=== PATIENT | female | born 1975 | race Caucasian/White ===

== ENCOUNTER 2017-08-04 11:35 | Observation (INO) | payer MEDICAID ==
[~2017-08-04] VITALS: Ht 162.6 cm; Wt 76.1 kg
--- NOTE | 2017-08-04 13:48 | ERD ---
ER Documentation Chief Complaint Chief Complaint SENT FOR EVAL FOR PELVIC PAIN, 6 WKS PG, VB HPI This is a 41-year-old female who presents the emergency department today after being sent here by her primary care doctor for further evaluation of some lower pelvic pain. Patient states she has not taken a medication for the pain. States that she had a small amount of blood yesterday but denies any currently. Denies any fevers or chills, vomiting, dysuria ROS All systems reviewed and are negative except as per history of present illness. Allergies Allergies: Coded Allergies: No Known Allergy (Verified Allergy, Unknown, 11/24/07) Physical Exam Vitals Vital Signs Date Time Temp Pulse Resp B/P Pulse Ox O2 Delivery O2 Flow Rate FiO2 08/04/17 11:37 99.3 67 18 170/84 99 Physical Exam Const: NAD Head: Atraumatic Eyes: Normal Conjunctiva ENT: Normal External Ears, Nose and Mouth. Neck: Full range of motion..~ No meningismus. Resp: Clear to auscultation bilaterally Cardio: Regular rate and rhythm, no murmurs Abd: Soft, mild pelvic tenderness non distended. Normal bowel sounds. No tenderness at McBurney's Skin: No petechiae or rashes Back: No midline or flank tenderness Ext: No cyanosis, or edema Neur: Awake and alert Psych: Normal Mood and Affect Result Diagram: 08/04/17 1349 Results 24 hrs Laboratory Tests Test 08/04/17 13:49 08/04/17 13:55 White Blood Count 7.210^3/ul Red Blood Count 4.9410^6/ul Hemoglobin 14.7g/dl Hematocrit 42.9% Mean Corpuscular Volume 86.8fl Mean Corpuscular Hemoglobin 29.8pg Mean Corpuscular Hemoglobin Concent 34.3g/dl Red Cell Distribution Width 13.4% Platelet Count 00336^3/UL Mean Platelet Volume 9.2fl Neutrophils % 56.5% Lymphocytes % 35.3% Monocytes % 6.1% Eosinophils % 1.1% Basophils % 0.6% Nucleated Red Blood Cells % 0.0/100WBC Neutrophils # 4.010^3/ul Lymphocytes # 2.510^3/ul Monocytes # 0.410^3/ul Eosinophils # 0.110^3/ul Basophils # 0.010^3/ul Nucleated Red Blood Cells # 0.010^3/ul Beta HCG, Quantitative 1738.8mIU/ml Urine Color STRAW Urine Clarity CLEAR Urine pH 6.0 Urine Specific [place] 1.012 Urine Ketones NEGATIVEmg/dL Urine Nitrite NEGATIVEmg/dL Urine Bilirubin NEGATIVEmg/dL Urine Urobilinogen NEGATIVEmg/dL Urine Leukocyte Esterase NEGATIVELeu/ul Urine Microscopic RBC 7/HPF Urine Microscopic WBC 1/HPF Urine Bacteria FEW/HPF Urine Mucus FEW/HPF Urine Hemoglobin 2+mg/dL Urine Glucose NEGATIVEmg/dL Urine Total Protein NEGATIVEmg/dl DIAGNOSTIC IMAGING REPORT Patient: CARA BALDERAS : 1975 Age: 41 Sex: F MR #: [id number] DOS: 08/04/17 1335 Ordering MD: KAYA BUSBY PA-C Location: FT Room/Bed: PROCEDURE: US Pelvis. CLINICAL INDICATION: vaginal bleeding TECHNIQUE: Multiple sonographic images of the pelvis were obtained utilizing a transabdominal and endovaginal technique. The images were reviewed on a PACS workstation. COMPARISON: None. FINDINGS: The uterus is normal in size and demonstrates a normal appearance of the myometrium. The endometrial stripe is homogeneous in appearance and has the thickness of 12 mm. No intrauterine gestation is noted. Normal Doppler flow is identified in both ovaries. The right ovary measures 2.4 x 1.4 x 1.6 cm. There is a hemorrhagic cyst in the right ovary measuring 1.5 cm. The left ovary measures 1.8 x 1.2 x 1.2 cm. There is a small amount of free fluid in the pelvis. RPTAT: AA IMPRESSION: No intrauterine gestation visualized. Small hemorrhagic corpus luteum cyst in the right ovary. Small amount of free fluid in the pelvis. Differential diagnosis includes early , missed or ectopic . Follow-up ultrasound and HCG levels is recommended. .Raghavendra King MD, MD Date Time Electronically viewed and signed by .Raghavendra King MD, MD on 08/04/2017 14: 12 .S/ CC: KAYA BUSBY PA-C Procedures/MDM This is a 41-year-old female who presents the emergency department today after being referred by her cocktail server Dr. Ortiz further evaluation and management for some lower pelvic pain and one bout of vaginal bleeding. Patient states she is approximately 6 weeks . States she has not yet had an ultrasound. Given patient's complaints I did obtain a complete OB workup. Laboratory work shows no elevated white blood cell count. She is not anemic. Platelets are within normal limits. UA is negative for infection. There are 7 microscopic red blood cells. Beta quant hCG 1738.8 Rh status O Positive Ultrasound is no intrauterine gestation visualized. There is normal Doppler flow to both ovaries. There is a hemorrhagic cyst in the right ovary measuring 1.5 cm. There is a small amount of free fluid in the pelvis. Patient symptoms at this time is consistent pelvic pain in early . Other differentials to consider early normal versus early failed versus placenta previa versus subchorionic hemorrhage. She does not have an intrauterine and her quant is above [address] a call to the patient's TRAIN INSPECTOR who was here at the hospital Dr. Ortiz. He recommended that the patient be admitted for observation and to rule out ectopic . I have explained this to the patient and she has agreed to stay in the hospital. Patient is afebrile and otherwise well-appearing. I have low suspicion for tubo ovarian abscess, ovarian torsion. She declined Tylenol here in the emergency department. I discussed the patient with Dr. Park. Dr. Hodges like the patient admitted to [facility]. Patient's blood pressure was elevated at 170/ 84 intake. Patient indicated that she takes amlodipine [address] Park was also notified of this. Any further orders placed will be completed by Dr. Park, or Dr. Hodges Departure Diagnosis: Primary Impression: Pelvic pain during Condition: Fair KAYA BUSBY PA-C Aug 04, 2017 13:48
[2017-08-04 14:10] LABS: BASOPHILS % 0.6 % (0.0-2.0); EOSINOPHILS # 0.1 10^3/ul (0.0-0.5); EOSINOPHILS % 1.1 % (0.0-7.0); HEMATOCRIT 42.9 % (37.0-47.0); HEMOGLOBIN 14.7 g/dl (12.0-16.0); LYMPHOCYTES # 2.5 10^3/ul (0.8-2.9); LYMPHOCYTES % 35.3 % (15.0-51.0); MEAN CORPUSCULAR HEMOGLOBIN 29.8 pg (29.0-33.0); MEAN CORPUSCULAR HGB CONC 34.3 g/dl (32.0-37.0); MEAN CORPUSCULAR VOLUME 86.8 fl (82.0-101.0); MEAN PLATELET VOLUME 9.2 fl (7.4-10.4); MONOCYTE # 0.4 10^3/ul (0.3-0.9); MONOCYTES % 6.1 % (0.0-11.0); NEUTROPHILS % 56.5 % (39.0-77.0); PLATELET COUNT 366 10^3/UL (140-415); RED BLOOD COUNT 4.94 10^6/ul (4.20-5.40); RED CELL DISTRIBUTION WIDTH 13.4 % (11.5-14.5); WHITE BLOOD COUNT 7.2 10^3/ul (4.8-10.8)
--- NOTE | 2017-08-04 14:12 | RADRPT ---
PROCEDURE: US Pelvis. CLINICAL INDICATION: vaginal bleeding TECHNIQUE: Multiple sonographic images of the pelvis were obtained utilizing a transabdominal and endovaginal technique. The images were reviewed on a PACS workstation. COMPARISON: None. FINDINGS: The uterus is normal in size and demonstrates a normal appearance of the myometrium. The endometria l stripe is homogeneous in appearance and has the thickness of 12 mm. No intrauterine gestation is noted. Normal Doppler flow is identified in both ovaries. The right ovary measures 2.4 x 1.4 x 1.6 cm. There is a hemorrhagic cyst in the right ovary measurin g 1.5 cm. The left ovary measures 1.8 x 1.2 x 1.2 cm. There is a small amount of free fluid in the pelvis. RPTAT: AA IMPRESSION: No intrauterine gestation visualized. Small hemorrhagic corpus luteum cyst in the right ovary. Small amount of free fluid in the pelvis. Differential diagnosis includes early , missed or ectopic . Follow-up ultrasound and HCG levels is recommended. .Raghavendra King MD, Date Time Electronically viewed and signed by .Raghavendra King MD, on 08/04/2017 14:12 .S/
[2017-08-04 14:14] LABS: ADD UMIC YES; UR ASCORBIC ACID NEGATIVE (NEGATIVE); UR BACTERIA FEW /HPF (NONE SEEN); UR BILIRUBIN (Dip) NEGATIVE (NEGATIVE); UR BLOOD (Dip) 2+ mg/dL (NEGATIVE); UR CLARITY CLEAR (CLEAR); UR COLOR STRAW (YELLOW); UR GLUCOSE (Dip) NEGATIVE (NEGATIVE); UR KETONES (Dip) NEGATIVE (NEGATIVE); UR LEUKOCYTE ESTERASE (Dip) NEGATIVE Leu/ul (NEGATIVE); UR MUCUS FEW /HPF (NONE SEEN); UR NITRITE (Dip) NEGATIVE (NEGATIVE); UR RBC 7 /HPF (0-5); UR SPECIFIC GRAVITY (Dip) 1.012 (1.003-1.030); UR TOTAL PROTEIN (Dip) NEGATIVE (NEGATIVE); UR UROBILINOGEN (Dip) NEGATIVE (NEGATIVE)
[2017-08-04 19:45] VITALS: PULSE 70; TEMP 98.3
[2017-08-04 21:28] VITALS: BP 123/61; RESP 16
[2017-08-04 22:38] VITALS: Ht 162.6 cm; Wt 76.1 kg
[2017-08-04] MEDS ORDERED: ACETAMINOPHEN 325 MG TAB PO PRN (23:00)
[2017-08-05 01:39] VITALS: BP 110/68; RESP 16
[2017-08-05 05:15] LABS: BASOPHILS % 0.5 % (0.0-2.0); EOSINOPHILS # 0.1 10^3/ul (0.0-0.5); EOSINOPHILS % 1.7 % (0.0-7.0); HEMATOCRIT 38.4 % (37.0-47.0); HEMOGLOBIN 13.1 g/dl (12.0-16.0); LYMPHOCYTES # 2.9 10^3/ul (0.8-2.9); LYMPHOCYTES % 44.9 % (15.0-51.0); MEAN CORPUSCULAR HEMOGLOBIN 29.6 pg (29.0-33.0); MEAN CORPUSCULAR HGB CONC 34.1 g/dl (32.0-37.0); MEAN CORPUSCULAR VOLUME 86.9 fl (82.0-101.0); MEAN PLATELET VOLUME 9.3 fl (7.4-10.4); MONOCYTE # 0.5 10^3/ul (0.3-0.9); MONOCYTES % 7.6 % (0.0-11.0); NEUTROPHIL # 2.9 10^3/ul (1.6-7.5); PLATELET COUNT 314 10^3/UL (140-415); RED BLOOD COUNT 4.42 10^6/ul (4.20-5.40); RED CELL DISTRIBUTION WIDTH 13.5 % (11.5-14.5); WHITE BLOOD COUNT 6.4 10^3/ul (4.8-10.8)
[2017-08-05 05:48] LABS: CALCIUM 8.8 mg/dl (8.4-10.2); CREATININE 0.63 mg/dl (0.44-1.00); POTASSIUM 3.6 mmol/L (3.5-5.1)
[2017-08-05 08:23] VITALS: BP 125/70; RESP 18
[2017-08-05] MEDS: AMLODIPINE 5 MG TAB PO SCH (09:54)
--- NOTE | 2017-08-05 13:06 | QN ---
Documentation Comment c/o RLQ pain. No other complaint Afebrile VSS Abdomen soft no rebound tenderness hCG slightly increased Will get follow up hCG, CBC and OB ultrasound. PAO HYATT MD Aug 05, 2017 13:06
--- NOTE | 2017-08-05 13:16 | HP ---
DATE OF ADMISSION: 08/04/2017 HISTORY OF PRESENT ILLNESS: A 41-year-old female 3, para 2, last menstrual period 7. The patient presented to the emergency department with complaints of pelvic pain and vaginal ble eding. PAST MEDICAL HISTORY: Hypertension. PAST SURGICAL HISTORY: Unremarkable. ALLERGIES: NO KNOWN ALLERGIES. FAMILY HISTORY: Noncontributory. PHYSICAL EXAMINATION: VITAL SIGNS: Patient is afebrile. Vital signs stable. HEAD, NECK AND CHEST: Within normal limits. ABDOMEN: Soft, nondistended. There is mild tenderness in the right lower quadrant. There is no re bound tenderness. PELVIC: Cervix is closed. EXTREMITIES: Within normal limits. NEUROLOGIC: Within normal limits. Workup in the emergency department included a serum hCG of 1700 and obstetric ultrasound which revea led no evidence of intrauterine , hemorrhagic cyst in the ovary, a small amount of free flu id, early intrauterine , missed or ectopic . IMPRESSION: Rule out ectopic . PLAN: Admit, serial hCG and CBC. Follow up OB ultrasound. Dictated By: PAO ANDERSON/WEN Conf#: [id number] DID#: [id number]
[2017-08-05 15:38] VITALS: BP 105/57; RESP 18
[2017-08-05 20:10] VITALS: BP 123/68; RESP 18
[2017-08-06 02:08] VITALS: BP 118/70; RESP 18
[2017-08-06 05:24] LABS: BASOPHILS % 0.3 % (0.0-2.0); EOSINOPHILS # 0.2 10^3/ul (0.0-0.5); EOSINOPHILS % 2.2 % (0.0-7.0); HEMATOCRIT 39.6 % (37.0-47.0); HEMOGLOBIN 13.4 g/dl (12.0-16.0); LYMPHOCYTES # 2.8 10^3/ul (0.8-2.9); LYMPHOCYTES % 40.7 % (15.0-51.0); MEAN CORPUSCULAR HEMOGLOBIN 29.6 pg (29.0-33.0); MEAN CORPUSCULAR HGB CONC 33.8 g/dl (32.0-37.0); MEAN CORPUSCULAR VOLUME 87.4 fl (82.0-101.0); MEAN PLATELET VOLUME 9.3 fl (7.4-10.4); MONOCYTE # 0.5 10^3/ul (0.3-0.9); MONOCYTES % 7.8 % (0.0-11.0); NEUTROPHIL # 3.4 10^3/ul (1.6-7.5); NEUTROPHILS % 48.7 % (39.0-77.0); PLATELET COUNT 302 10^3/UL (140-415); RED BLOOD COUNT 4.53 10^6/ul (4.20-5.40); RED CELL DISTRIBUTION WIDTH 13.2 % (11.5-14.5)
[2017-08-06 07:33] VITALS: BP 136/66; RESP 19
[2017-08-06] MEDS: AMLODIPINE 5 MG TAB PO SCH (08:36)
--- NOTE | 2017-08-06 09:33 | RADRPT ---
PROCEDURE: US Pelvis. CLINICAL INDICATION: Pelvic pain TECHNIQUE: Transabdominal and transvaginal pelvic ultrasound are performed. COMPARISON: None. FINDINGS: The uterus is normal in echogenicity and retroverted in orientation. The uterus measures 7.5 x 4.9 x 5.4 cm. There is a 1 cm myometrial fibroid.. A thickened endometrium is seen. Within the endomet rial canal, there is a very small cystic structure measuring 2.6 mm. This may represent a gestationa l sac of approximately 4 weeks 6 days. No pole with yolk sac is seen. No obvious subchorionic hemorrhage is identified.. The cervix is normal in appearance. Both ovaries are identified, and normal in size, shape, and appearance. Corpus luteal cyst is noted in the right ovary. There are no complex or solid adnexal masses.. Normal Doppler flow is noted of both ovaries. The right ovary measures 2.2 x 1.4 x 1.4 cm, and the left ovary measures 2.4 x 1.6 x 1.4 cm There is no free fluid in the posterior cul-de-sac and adjacent to the right adnexa IMPRESSION: 1. Small cystic structure identified in the endometrial canal, which may represent a very early ges tational sac of approximately 4-week 6 days. No pole with yolk sac identified. Continued follo w-up and correlation with serial beta HCG levels recommended 2. No subchorionic hemorrhage. 3. Corpus luteal cyst within the right ovary. There are no complex or solid adnexal masses. 4. normal Doppler flow to both ovaries. 5. 1 cm fundal fibroid 6. Small free fluid in the pelvis RPTAT: .Masoud Herrera MD, Date Time Electronically viewed and signed by .Masoud Herrera MD, on 08/06/2017 09:32 .W/
--- NOTE | 2017-08-06 14:20 | DS ---
Date/Time of Note Date/Time of Note DATE: 08/06/17 TIME: 14:17 Discharge Summary Admission/Discharge Info Admit Date/Time Aug 04, 2017 at 15:57 Discharge Date/Time Discharge Diagnosis Early IUP or missed Patient Condition: Stable Hospital Course Patient was monitored closely and erial hCG and ultrasound done. Follow-up Plan 08/08/[address] Hyatt Primary Care Provider Care Physician No Primary Time spent on discharge: > 30 minutes Pending Labs Laboratory Tests Test 08/06/17 04:36 White Blood Count 7.010^3/ul (4.8-10.8) Red Blood Count 4.5310^6/ul (4.20-5.40) Hemoglobin 13.4g/dl (12.0-16.0) Hematocrit 39.6% (37.0-47.0) Mean Corpuscular Volume 87.4fl (82.0-101.0) Mean Corpuscular Hemoglobin 29.6pg (29.0-33.0) Mean Corpuscular Hemoglobin Concent 33.8g/dl (32.0-37.0) Red Cell Distribution Width 13.2% (11.5-14.5) Platelet Count 46723^3/UL (140-415) Mean Platelet Volume 9.3fl (7.4-10.4) Neutrophils % 48.7% (39.0-77.0) Lymphocytes % 40.7% (15.0-51.0) Monocytes % 7.8% (0.0-11.0) Eosinophils % 2.2% (0.0-7.0) Basophils % 0.3% (0.0-2.0) Nucleated Red Blood Cells % 0.0/100WBC (0.0-0.0) Neutrophils # 3.410^3/ul (1.6-7.5) Lymphocytes # 2.810^3/ul (0.8-2.9) Monocytes # 0.510^3/ul (0.3-0.9) Eosinophils # 0.210^3/ul (0.0-0.5) Basophils # 0.010^3/ul (0.0-0.1) Nucleated Red Blood Cells # 0.010^3/ul (0.0-0.0) Beta HCG, Quantitative 2232.5mIU/ml PAO HYATT MD Aug 06, 2017 14:20
== END 2017-08-06 15:20 | disposition home or self-care (01) ==
LOC: FTE 11:35 → MS1 15:57
PROVIDERS: ADMIT Obstetrics & Gynecology; ATTEND Obstetrics & Gynecology
DX: O02.1 Missed abortion (principal); N83.11 Corpus luteum cyst of right ovary; I10 Essential (primary) hypertension
CPT/HCPCS: 36415; 76801; 76817; 80048; 81001; 84702; 85025; 86900; 86901; Z7500; Z7502; Z7610; G0378

== ENCOUNTER 2017-08-12 07:23 | Emergency (ER) | payer MEDICAID ==
[~2017-08-12] VITALS: Ht 157.5 cm; Wt 75.4 kg
[2017-08-12 07:24] VITALS: Ht 157.5 cm; Wt 75.4 kg
[2017-08-12] MEDS ORDERED: ACETAMINOPHEN 500 MG TAB PO STA (08:27)
--- NOTE | 2017-08-12 08:37 | ERD ---
ER Documentation Chief Complaint Chief Complaint vaginal bleeding x3 days 8 weeka HPI This a 41-year-old female who presents the emergency department today complaining of some vaginal bleeding for the past 3 days. Patient states she has had pelvic pain for the past week. States she is approximately 6 weeks states that she was here last week and was admitted to the hospital for a few days for observation. She has not taken any medication for the pain. Denies any fevers or chills, vomiting. ROS All systems reviewed and are negative except as per history of present illness. Medications Home Meds Active Scripts Acetaminophen* (Tylophen*) 500 Mg Capsule, 1 CAP PO Q6H Y for PAIN AND OR ELEVATED TEMP, #30 CAP Prov:KAYA BUSBY PA-C 08/12/17 Allergies Allergies: Coded Allergies: No Known Allergy (Verified , 08/12/17) PMhx/Soc History of Surgery: No Anesthesia Reaction: No Hx Neurological Disorder: No Hx Respiratory Disorders: No Hx Cardiac Disorders: Yes (hypertension) Hx Psychiatric Problems: No Hx Miscellaneous Medical Probl: No Hx Alcohol Use: No Hx Substance Use: No Hx Tobacco Use: No Smoking Status: Never smoker Physical Exam Vitals Vital Signs Date Time Temp Pulse Resp B/P Pulse Ox O2 Delivery O2 Flow Rate FiO2 08/12/17 07:24 98.8 75 18 140/81 98 Physical Exam Const: NAD Head: Atraumatic Eyes: Normal Conjunctiva ENT: Normal External Ears, Nose and Mouth. Neck: Full range of motion..~ No meningismus. Resp: Clear to auscultation bilaterally Cardio: Regular rate and rhythm, no murmurs Abd: Soft, lower pelvic pain, non distended. Normal bowel sounds. No tenderness at McBurney's Skin: No petechiae or rashes Back: No midline or flank tenderness Ext: No cyanosis, or edema Neur: Awake and alert Psych: Normal Mood and Affect Result Diagram: 08/12/17 0840 Results 24 hrs Laboratory Tests Test 08/12/17 08:40 White Blood Count 9.310^3/ul Red Blood Count 4.9510^6/ul Hemoglobin 14.9g/dl Hematocrit 43.4% Mean Corpuscular Volume 87.7fl Mean Corpuscular Hemoglobin 30.1pg Mean Corpuscular Hemoglobin Concent 34.3g/dl Red Cell Distribution Width 13.4% Platelet Count 31399^3/UL Mean Platelet Volume 9.0fl Neutrophils % 70.5% Lymphocytes % 22.2% Monocytes % 5.4% Eosinophils % 1.3% Basophils % 0.3% Nucleated Red Blood Cells % 0.0/100WBC Neutrophils # 6.610^3/ul Lymphocytes # 2.110^3/ul Monocytes # 0.510^3/ul Eosinophils # 0.110^3/ul Basophils # 0.010^3/ul Nucleated Red Blood Cells # 0.010^3/ul Urine Color YELLOW Urine Clarity CLEAR Urine pH 6.0 Urine Specific [place] 1.020 Urine Ketones NEGATIVEmg/dL Urine Nitrite NEGATIVEmg/dL Urine Bilirubin NEGATIVEmg/dL Urine Urobilinogen NEGATIVEmg/dL Urine Leukocyte Esterase NEGATIVELeu/ul Urine Microscopic RBC 121/HPF Urine Microscopic WBC 2/HPF Urine Mucus FEW/HPF Urine Hemoglobin 3+mg/dL Urine Glucose NEGATIVEmg/dL Urine Total Protein NEGATIVEmg/dl Beta HCG, Quantitative 1904.8mIU/ml Current Medications Medications (Trade) Dose Ordered Sig/Chiqui Route PRN Reason Start Time Stop Time Status Last Admin Dose Admin Acetaminophen (Tylenol Tab) 500 mg ONCE STAT PO 08/12/17 08:27 08/12/17 08:28 DC 08/12/17 08:45 DIAGNOSTIC IMAGING REPORT Patient: CARA BALDERAS : 1975 Age: 41 Sex: F MR #: [id number] DOS: 08/12/17826 Ordering MD: KAYA BUSBY PA-C Location: E Room/Bed: PROCEDURE: US Pelvis. CLINICAL INDICATION: Vaginal bleeding TECHNIQUE: Transabdominal and transvaginal pelvic ultrasound are performed. COMPARISON: To 08/06/2017 FINDINGS: The uterus is normal in echogenicity and retroverted in orientation. The uterus measures 7 point of 4.6 x 5.7 cm.. Previously seen fibroid is not well visualized on the current study. Endometrium remains thickened measuring 1.29 cm. There are 2 cystic areas within the endometrial canal and grossly unchanged from prior examination. There is no significant double decidual reaction or obvious pole or yolk sac. These are unlikely to represent early gestational sacs given lack of change in the absence of significant double decidual reaction. Both ovaries are identified. There is a stable 1.4 cm cyst within the right ovary with low-level internal echoes. This likely represents a hemorrhagic cyst.. No solid adnexal masses are seen... Normal Doppler flow is noted of both ovaries. The right ovary measures 2.2 x 1.3 x 1.8 cm, and the left ovary measures 1.6 x 1.2 x 1.1 cm Small free fluid is identified IMPRESSION: 1. No definite intrauterine seen.. 2. Endometrial lining remains thickened with two small cystic areas without significant double decidual reaction, pole, or yolk sac. These are not significantly changed from prior study and are unlikely to represent early gestational sacs. However correlation with serial beta HCG level is recommended. 3. Stable 1.4 cm right ovarian cyst with low-level internal echoes. This likely represents a hemorrhagic cyst. 4. No complex or solid adnexal masses. 5. Normal Doppler flow to both ovaries. 6. Small free fluid in the pelvis RPTAT: HH .Masoud Herrera MD, MD Date Time Electronically viewed and signed by .Masoud Herrera MD, MD on 08/12/2017 09:50 .W/ CC: KAYA BUSBY PA-C Procedures/[facility] This is a 41-year-old female who presents to the emergency department today complaining of vaginal bleeding the past 3 days and pelvic pain for the past week. Patient states she is approximately 6 weeks . Review of patient's medical record she was admitted to the hospital last week for observation to rule out ectopic given this I did obtain a complete OB workup. Laboratory work shows no elevated white blood cell count. She is not anemic. Platelets are within normal limits. UA is negative for infection. There are 121 microscopic red blood cell Beta quant [id number] Rh status O+ Ultrasound is no definite intrauterine seen. There is endometrial lining remains thickened with 2 small cystic areas without significant double decidual reaction. There is no pole or yolk sac. These are not significantly changed from prior study and unlikely to represent early gestational sacs. There is a stable 1.4 cm right ovarian cyst with low-level internal echoes. This likely represents a hemorrhagic cyst. There is no complex or solid adnexal masses. There is normal Doppler flow to both ovaries. There is small free fluid in the pelvis. Patient symptoms at this time is consistent with vaginal bleeding in early . Other differentials to consider early normal versus early failed versus placenta previa versus subchorionic hemorrhage. Patient is afebrile and otherwise well-appearing. I have low suspicion for ectopic , tubo ovarian abscess, ovarian torsion. Given patient's beta quant has been fluctuating and had been increasing but is now decreasing since her last check on August 06 and her US remains unchanged with no certain IUP I did place a call to her [employer] Dr. Hodges who has agreed to see the patient here in the emergency department. He did see the patient and feels that the patient may be seen in clinic tomorrow as an outpatient. Patient is given a prescription for Tylenol. At this time the patient is stable for discharge and outpatient management. Patient should follow up with their PCP in the next 1-2 days. They may return to the emergency department sooner for any persistent or worsening of symptoms. Patient understood and agreed with the plan. Departure Diagnosis: Primary Impression: Vaginal bleeding in patient at less than 20 weeks gestation Additional Impression: Pelvic pain during Condition: KAYA Portillo PA-C Aug 12, 2017 08:37
[2017-08-12 09:07] LABS: BASOPHILS % 0.3 % (0.0-2.0); EOSINOPHILS # 0.1 10^3/ul (0.0-0.5); EOSINOPHILS % 1.3 % (0.0-7.0); HEMATOCRIT 43.4 % (37.0-47.0); HEMOGLOBIN 14.9 g/dl (12.0-16.0); LYMPHOCYTES # 2.1 10^3/ul (0.8-2.9); LYMPHOCYTES % 22.2 % (15.0-51.0); MEAN CORPUSCULAR HEMOGLOBIN 30.1 pg (29.0-33.0); MEAN CORPUSCULAR HGB CONC 34.3 g/dl (32.0-37.0); MEAN CORPUSCULAR VOLUME 87.7 fl (82.0-101.0); MONOCYTE # 0.5 10^3/ul (0.3-0.9); MONOCYTES % 5.4 % (0.0-11.0); NEUTROPHIL # 6.6 10^3/ul (1.6-7.5); NEUTROPHILS % 70.5 % (39.0-77.0); PLATELET COUNT 338 10^3/UL (140-415); RED BLOOD COUNT 4.95 10^6/ul (4.20-5.40); RED CELL DISTRIBUTION WIDTH 13.4 % (11.5-14.5); WHITE BLOOD COUNT 9.3 10^3/ul (4.8-10.8)
[2017-08-12 09:20] LABS: ADD UMIC YES; UR ASCORBIC ACID NEGATIVE (NEGATIVE); UR BILIRUBIN (Dip) NEGATIVE (NEGATIVE); UR BLOOD (Dip) 3+ mg/dL (NEGATIVE); UR CLARITY CLEAR (CLEAR); UR COLOR YELLOW (YELLOW); UR GLUCOSE (Dip) NEGATIVE (NEGATIVE); UR KETONES (Dip) NEGATIVE (NEGATIVE); UR LEUKOCYTE ESTERASE (Dip) NEGATIVE Leu/ul (NEGATIVE); UR MUCUS FEW /HPF (NONE SEEN); UR NITRITE (Dip) NEGATIVE (NEGATIVE); UR RBC 121 /HPF (0-5); UR TOTAL PROTEIN (Dip) NEGATIVE (NEGATIVE); UR UROBILINOGEN (Dip) NEGATIVE (NEGATIVE)
--- NOTE | 2017-08-12 09:51 | RADRPT ---
PROCEDURE: US Pelvis. CLINICAL INDICATION: Vaginal bleeding TECHNIQUE: Transabdominal and transvaginal pelvic ultrasound are performed. COMPARISON: To 08/06/2017 FINDINGS: The uterus is normal in echogenicity and retroverted in orientation. The uterus measures 7 point of 4.6 x 5.7 cm.. Previously seen fibroid is not well visualized on the current study. Endometrium re kelly thickened measuring 1.29 cm. There are 2 cystic areas within the endometrial canal and grossly unchanged from prior examination. There is no significant double decidual reaction or obvious pole or yolk sac. These are unlikely to represent early gestational sacs given lack of change in th e absence of significant double decidual reaction. Both ovaries are identified. There is a stable 1.4 cm cyst within the right ovary with low-level int ernal echoes. This likely represents a hemorrhagic cyst.. No solid adnexal masses are seen... Norm al Doppler flow is noted of both ovaries. The right ovary measures 2.2 x 1.3 x 1.8 cm, and the left ovary measures 1.6 x 1.2 x 1.1 cm Small free fluid is identified IMPRESSION: 1. No definite intrauterine seen.. 2. Endometrial lining remains thickened with two small cystic areas without significant double deci dual reaction, pole, or yolk sac. These are not significantly changed from prior study and are unlikely to represent early gestational sacs. However correlation with serial beta HCG level is rec ommended. 3. Stable 1.4 cm right ovarian cyst with low-level internal echoes. This likely represents a hemorr hagic cyst. 4. No complex or solid adnexal masses. 5. Normal Doppler flow to both ovaries. 6. Small free fluid in the pelvis RPTAT: HH .Masoud Herrera MD, Date Time Electronically viewed and signed by .Masoud Herrera MD, on 08/12/2017 09:50 .W/
[2017-08-12] MEDS ORDERED: ACET500C5 PO (11:08)
[2017-08-12 12:45] VITALS: BP 126/64; PULSE 67; RESP 18; TEMP 98.4
== END 2017-08-12 12:45 | disposition home or self-care (01) ==
LOC: FTE 07:23
DX: O20.9 Hemorrhage in early pregnancy, unspecified (principal); O26.891 Other specified pregnancy related conditions, first trimester; R10.2 Pelvic and perineal pain; O10.011 Pre-existing essential hypertension complicating pregnancy, first trimester; Z3A.08 8 weeks gestation of pregnancy
CPT/HCPCS: 36415; 76801; 76817; 81001; 84702; 85025; Z7502; Z7610

== ENCOUNTER 2019-02-08 10:30 | Inpatient (IN) | payer MEDICAID ==
[~2019-02-08] VITALS: Ht 160 cm; Wt 77.8 kg
[~2019-02-08 10:30] MED LIST: ACET500C5 PO
[2019-02-08 11:01] VITALS: Ht 160 cm; Wt 77.8 kg
[2019-02-08 11:02] VITALS: BP 177/85; PULSE 83; RESP 19
--- NOTE | 2019-02-08 11:15 | TRIAGE ---
OB Triage Datetime Report Generated by CPN: 02/08/2019 11:14 Datetime: 02/08/2019 11:06 Assessment Type: Triage Maternal Assessment Level of Consciousness: Fully Conscious DTR's/Clonus: DTRs 2+; No Clonus Headache: Denies Blurred Vision: No Respiratory Effort: Unlabored; Regular Rhythm; Equal Expansion Breath Sounds, Left: Clear and Equal Breath Sounds, Right: Clear and Equal Nausea/Vomiting: Denies RUQ Epigastric Pain: Denies Lower Extremities Edema: None Degree: None Upper Extremities Edema: None Degree: None Facial Edema: None Fall Risk Assessment History of Falling: (0) No Secondary Diagnosis: (0) No Ambulatory Aid: (0) Bedrest/Nurse Assist IV Therapy: (0) No Gait: (0) Normal/Bedrest/Immobile Mental Status: (0) Oriented to Own Ability Fall Score: 0 Fall Risk Score Definition: No Risk: No action required Datetime: 02/08/2019 11:05 Time of Arrival: 02/08/2019 10:17 EGA: 25.1 Arrived By: Ambulatory Arrived From: Home Chief Complaint: PTL Movement: Present Contractions: Irregular Rupture of Membranes: Denies Vaginal Bleeding: None Vaginal Discharge: Denies Recent Sexual Intercouse: Denies Abdominal Trauma: Not Applicable Patient Complaints: Contractions; Cramping Time Provider Notified: 02/08/2019 11:10 Initial Plan: MARK ANTHONYT
[2019-02-08] MEDS ORDERED: MAGNESIUM SULFATE 4 GM/100 ML 100 ML IV ONE (11:30)
[2019-02-08] MEDS: LACTATED RINGER'S 1,000 ML IV SCH ×2 (11:33→19:49)
[2019-02-08] MEDS: MAGNESIUM SULFATE 20 GM/500 ML 500 ML IV SCH ×2 (12:26→22:31)
[2019-02-08] MEDS: BETAMET NA PHOS/AC(6 MG/ML) 2 ML INJ SYG IM SCH (12:27)
[2019-02-08] MEDS ORDERED: hydrALAzine 20 MG INJ IV PRN (13:00)
[2019-02-08] MEDS ORDERED: LABETALOL HCL 20MG INJ IV ONE (13:00)
[2019-02-08] MEDS ORDERED: LABETALOL HCL 20MG INJ IV PRN ×2 (13:00)
--- NOTE | 2019-02-08 13:20 | HP ---
Date/Time of Note Date/Time of Note DATE: 02/08/19 TIME: 13:15 OB - History Hx of Present Chief Complaint: contractions Estimated Due Date: May 23, 2019 : 4 Para: 2 Spontaneous : 1 Therapeutic : 0 Ultrasounds: Abnormal US findings Abnormal Ultrasound Findings: cardiac anomaly Obstetrical Complications: Other (Amniocentesis congfirmed Trisomy 21) Medical Complications: Other (chronic hypertension) Past Family/Social History * Past Medical, Surgical, Family and Obstetric Histories reviewed from chart. OB Admission Exam Vital Signs Vital Signs Vital Signs Date Temp Pulse Resp B/P (MAP) Pulse Ox O2 O2 Flow FiO2 Time Delivery Rate 02/08/19 98.7 83 19 177/85 Room Air 11:02 (115) Physical Exam HEENT: WNL Heart: Rhythm Normal Lungs: Clear Abdomen: WNL Extremities: Normal Reflexes: Normal Heart Rate: 130's Decelerations: No Decelerations Contractions on Admission: < 5 Minutes Apart Last 72 hours Lab Results CBC & BMP 02/08/19 11:37 Liver Function Test 02/08/19 11:37 Alanine Aminotransferase (ALT/SGPT) 18 Albumin 3.4 Alkaline Phosphatase 75 Aspartate Amino Transf (AST/SGOT) 17 Direct Bilirubin 0.00 Total Protein 6.8 OB Assessment/Plan Reason for admission: labor, other Other Assessment: BP in severe range Plan: Other Other plan: Admit PIH labs IV magnesium sulfate IV labetalol Perinatology consult PAO HYATT MD Feb 08, 2019 13:20
[2019-02-08] MEDS ORDERED: INDOMETHACIN 50 MG PO ONE (19:00)
--- NOTE | 2019-02-08 20:05 | CONS ---
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 Hx of Present Chief Complaint: contractions Estimated Due Date: May 23, 2019 : 4 Para: 2 Spontaneous : 1 Therapeutic : 0 Ultrasounds: Abnormal US findings Abnormal Ultrasound Findings: cardiac anomaly Obstetrical Complications: Other (Amniocentesis confirmed Trisomy 21) Medical Complications: Other (chronic hypertension) Constitutional: no complaints, improved Eyes: no complaints ENT: no complaints Respiratory: no complaints Cardiovascular: no complaints Gastrointestinal: no complaints Genitourinary: no complaints Musculoskeletal: no complaints Skin: no complaints Neurologic: no complaints Endocrine: no complaints Lymphatic: no complaints Psychological: no complaints, nl mood/affect Immunologic: no complaints Additional Comments Mom did receive betamethasone this afternoon at 13:00 hours (02/08) and started on Magnesium Sulfate. Topic Discussed: Prematurity, Low weight, RDS, Apnea, Sepsis, Nutrition, IVH, Morbidity and mortality given the baby is Trisomy with congenital heart defect complicated by prematurity and Low weight. Note: Time spent doing this consult >35 minutes. Past Medical History Home Meds Active Scripts Acetaminophen* (Tylophen*) 500 Mg Capsule, 1 CAP PO Q6H PRN for PAIN AND OR ELEVATED TEMP, #30 CAP Prov:KAYA BUSBY PA-C 08/12/17 Medications Current Medications Lactated Ringer's 1,000 ml @ 125 mls/hr Q8H IV Last administered on 02/08/19at 19:49; Admin Dose 125 MLS/HR; Start 02/08/19 at 11:22 Magnesium Sulfate 500 ml @ 50 mls/hr Q10H IV Last administered on 02/08/19at 12:26; Admin Dose 50 MLS/HR; Start 02/08/19 at 11:22 Betamethasone Acet/Betameth SodPhos (Celestone Soluspan) 12 mg Q24H IM Last administered on 02/08/19at 12:27; Admin Dose 12 MG; Start 02/08/19 at 11:30; Stop 02/09/19 at 11:31 Prenat Multivit/ [place]/Iron/Folic Ac () 1 tab DAILY PO ; Start 02/09/19 at 09:00 Labetalol HCl (Labetalol) 40 mg ONCE PRN IV ELEVATED BLOOD PRESSURE; Start 02/08/19 at 13:00 Labetalol HCl (Labetalol) 80 mg ONCE PRN IV ELEVATED BLOOD PRESSURE; Start 02/08/19 at 13:00 Hydralazine HCl (Apresoline) 10 mg ONCE PRN IV ELEVATED BLOOD PRESSURE; Start 02/08/19 at 13:00 Indomethacin (Indocin) 25 mg Q6 PO ; Start 02/09/19 at 00:00 Labetalol HCl (Normodyne) 100 mg BID PO ; Start 02/08/19 at 21:00 Allergies: Coded Allergies: No Known Allergy (Verified , 08/12/17) Social History Smoking Status: Never smoker Exam/Review of Systems Exam Vitals Vital Signs Date Temp Pulse Resp B/P (MAP) Pulse Ox O2 O2 Flow FiO2 Time Delivery Rate 02/08/19 98.7 83 19 177/85 Room Air 11:02 (115) Results Result Diagram: 02/08/19 1137 02/08/19 1137 Results 24hrs Laboratory Tests Test 02/08/19 11:37 02/08/19 18:43 White Blood Count 7.8 Red Blood Count 4.10 L Hemoglobin 12.5 Hematocrit 37.0 Mean Corpuscular Volume 90.2 Mean Corpuscular Hemoglobin 30.5 Mean Corpuscular Hemoglobin Concent 33.8 Red Cell Distribution Width 13.8 Platelet Count 293 Mean Platelet Volume 9.1 Immature Granulocytes % 0.500 H Neutrophils % 72.2 Lymphocytes % 19.6 Monocytes % 5.8 Eosinophils % 1.5 Basophils % 0.4 Nucleated Red Blood Cells % 0.0 Immature Granulocytes # 0.040 H Neutrophils # 5.6 Lymphocytes # 1.5 Monocytes # 0.5 Eosinophils # 0.1 Basophils # 0.0 Nucleated Red Blood Cells # 0.0 Prothrombin Time 12.9 Prothrombin Time Ratio 1.0 INR International Normalized Ratio 0.96 Activated Partial Thromboplast Time 29.4 Fibrinogen 619.0 H Urine Color YELLOW Urine Clarity CLEAR Urine pH 8.0 Urine Specific [place] 1.018 Urine Ketones NEGATIVE Urine Nitrite NEGATIVE Urine Bilirubin NEGATIVE Urine Urobilinogen NEGATIVE Urine Leukocyte Esterase NEGATIVE Urine Microscopic RBC 1 Urine Microscopic WBC 1 Urine Hemoglobin 1+ H Urine Glucose NEGATIVE Urine Total Protein NEGATIVE Sodium Level 137 Potassium Level 4.2 Chloride Level 109 Carbon Dioxide Level 21 Anion Gap 7 Blood Urea Nitrogen 9 Creatinine 0.38 L Est Glomerular Filtrat Rate mL/min > 60 Glucose Level 85 Uric Acid 3.8 Calcium Level 8.6 Total Bilirubin 0.3 Direct Bilirubin 0.00 Indirect Bilirubin 0.3 Aspartate Amino Transf (AST/SGOT) 17 Alanine Aminotransferase (ALT/SGPT) 18 Alkaline Phosphatase 75 Total Protein 6.8 Albumin 3.4 Globulin 3.40 H Albumin/Globulin Ratio 1.00 Magnesium Level 5.2 *H Medications Medication Current Medications Lactated Ringer's 1,000 ml @ 125 mls/hr Q8H IV Last administered on 02/08/19at 19:49; Admin Dose 125 MLS/HR; Start 02/08/19 at 11:22 Magnesium Sulfate 500 ml @ 50 mls/hr Q10H IV Last administered on 02/08/19at 12:26; Admin Dose 50 MLS/HR; Start 02/08/19 at 11:22 Betamethasone Acet/Betameth SodPhos (Celestone Soluspan) 12 mg Q24H IM Last administered on 02/08/19at 12:27; Admin Dose 12 MG; Start 02/08/19 at 11:30; Stop 02/09/19 at 11:31 Prenat Multivit/ [place]/Iron/Folic Ac () 1 tab DAILY PO ; Start 02/09/19 at 09:00 Labetalol HCl (Labetalol) 40 mg ONCE PRN IV ELEVATED BLOOD PRESSURE; Start 02/08/19 at 13:00 Labetalol HCl (Labetalol) 80 mg ONCE PRN IV ELEVATED BLOOD PRESSURE; Start 02/08/19 at 13:00 Hydralazine HCl (Apresoline) 10 mg ONCE PRN IV ELEVATED BLOOD PRESSURE; Start 02/08/19 at 13:00 Indomethacin (Indocin) 25 mg Q6 PO ; Start 02/09/19 at 00:00 Labetalol HCl (Normodyne) 100 mg BID PO ; Start 02/08/19 at 21:00 JT SALDIVAR MD Feb 08, 2019 20:05
[2019-02-08] MEDS ORDERED: ACETAMINOPHEN 500 MG TAB PO STA (20:32)
[2019-02-08] MEDS: LABETALOL 100 MG TAB PO SCH (21:01)
[2019-02-08] MEDS: INDOMETHACIN 25 MG PO SCH (23:59)
--- NOTE | 2019-02-09 02:17 | CONS ---
DATE OF ADMISSION: 02/08/2019 DATE OF CONSULTATION: 02/08/2019 HISTORY OF PRESENT ILLNESS: The patient is a 43-year-old at 25 weeks and 1 day, was admitted seconda to elevated blood pressures. Upon admission, she had severe range blood pressures. She was place d on magnesium sulfate for seizure prophylaxis. She has been chronic hypertensive, has been taking o n and off medication. During the , she denies taking any type of medications. Does not have any headache, chest pain, shortness of breath or right upper quadrant pain. PAST MEDICAL HISTORY: As above. OBSTETRIC HISTORY: Previous vaginal deliveries, last one with hypertension, but full term delivery. REVIEW OF SYSTEMS: All reviewed and negative. VITAL SIGNS: Blood pressure is currently 125/61. Physical examination deferred. heart tones are category 2 secondary to 2 or 3 spontaneous and a couple of late decelerations, but overall heart tone has moderate variability. Contractions every 7 to 8 minutes. LABORATORY RESULTS: Platelet, AST, ALT, creatinine are normal. IMPRESSION: Intrauterine at 25 weeks and 1 day with chronic hypertension, possible preecla mpsia, worsening; currently on magnesium sulfate for seizure prophylaxis, also for tocolysis, receivi ng betamethasone. She was also given 1 dose of IV labetalol about an hour prior to my arrival. I ar rived around 2:20. The patient apparently got it at 1:20, which reflects on her normal blood pressur e at the point of my visit. Also, amniocentesis showed baby is positive for T21 and there are some c ardiac anomalies. Extent is unknown. Dr. Hyatt and the physicians at [facility] have discussed in detail about problems and she decided to cont inue with the and would like to have everything done. heart tone is category 2. RECOMMENDATIONS: Continue with the magnesium sulfate at least 24 hours after the second dose of beta methasone. I do recommend also Indocin in addition to magnesium sulfate to hopefully stop the contra ctions. She says that she does not feel the contractions and overall, she does feel better in terms of contractions since the time of admission. I do recommend labetalol 100 mg twice a day and increase as needed. In-house management until further notice. Follow up on the 24-hour urine for protein. NICU consult. In addition, she would like to have a section in case of an emergency and wou ld like everything for the baby to be done. Dictated By: YU BARNEY MD ST/NTS Conf#: [id number] DID#: [id number] CC: MADHU RAMOS MD; PAO HYATT MD;*EndCC*
[2019-02-09] MEDS: INDOMETHACIN 25 MG PO SCH ×4 (05:51→23:35)
[2019-02-09] MEDS: PRENATAL VITAMIN PO SCH (08:06)
[2019-02-09] MEDS: LABETALOL 100 MG TAB PO SCH ×2 (08:06→21:07)
[2019-02-09] MEDS: MAGNESIUM SULFATE 20 GM/500 ML 500 ML IV SCH ×2 (08:09→17:33)
[2019-02-09] MEDS: LACTATED RINGER'S 1,000 ML IV SCH ×2 (08:10→21:08)
[2019-02-09] MEDS ORDERED: LABETALOL 100 MG TAB PO ONE (08:30)
--- NOTE | 2019-02-09 11:46 | QN ---
Documentation Comment No complaint Afebrile VSS Strip appropriate for GA Plt, ALT and ASt normal Continue with IV magnesium sulfate and IM betamethasone PAO HYATT MD Feb 09, 2019 11:46
[2019-02-09] MEDS: BETAMET NA PHOS/AC(6 MG/ML) 2 ML INJ SYG IM SCH (12:21)
[2019-02-10] MEDS: MAGNESIUM SULFATE 20 GM/500 ML 500 ML IV SCH (03:38)
[2019-02-10] MEDS: INDOMETHACIN 25 MG PO SCH ×3 (06:01→20:02)
--- NOTE | 2019-02-10 09:46 | QN ---
Documentation Comment No complaint Afebrile VSS Strip appropriate for GA D/C magnesium sulfate Continue labetalol. PAO HYATT MD Feb 10, 2019 09:46
[2019-02-10] MEDS: PRENATAL VITAMIN PO SCH (09:47)
[2019-02-10] MEDS: LABETALOL 100 MG TAB PO SCH ×2 (09:47→21:05)
[2019-02-10] MEDS: LACTATED RINGER'S 1,000 ML IV SCH ×2 (10:46→18:49)
--- NOTE | 2019-02-10 13:03 | RADRPT ---
Vent Rate: 78 bpm RR Interval: 772 msec WI Interval: 133 msec QRS Duration: 85 msec QT Interval: 431 msec QTC Interval: 491 msec P-R-T Young: 18 - 4 - 29 degrees Sinus rhythm...normal P axis, V-rate 50- 99 Probable left ventricular hypertrophy...multiple LVH criteria Electronically Signed By: Austin Martinez
--- NOTE | 2019-02-10 18:39 | RADRPT ---
Echocardiogram Report Patient Name: CARA BALDERASPatient ID: [id number] : 1975 (43y 3m)Study Date: 02/10/2019 10:19:17 AM Gender: FAccession #: [id number] Tech: PA Location: [facility] Ref.Physician: PAO HYATT Height(Cm): BSA: Weight(Kg): Quality: GoodOrder Physician: PAO HYATT Account #: Procedures: Echocardiographic Report: Transthoracic echocardiogram with complete 2D, M-Mode, and doppler examination. Indications: possible LVH. Measurements: 2D/M Mode Doppler Measurement Value Normal Range Measurement Value Normal Range LVIDd 2D 4.5 [ 3.8 - 5.2 ] cm AV Peak [place] 1.5 [ 100.0 - 170.0 ] cm/sec LVIDs 2D 3.0 [ 2.2 - 3.5 ] cm AV Peak PG 9.0 [ 2.0 - 9.0 ] mmHg LVPWd 2D 0.9 [ 0.6 - 0.9 ] cm LVOT Peak [place] 1.0 [ 70.0 - 110.0 ] cm/sec IVSd 2D 1.0 [ 0.6 - 0.9 ] cm LVOT Peak PG 4.0 [ 2.0 - 6.0 ] mmHg AoR Diam 2D 2.5 [ 2.3 - 3.1 ] cm MV E Peak Gen[place] 1.2 [ 60.0 - 130.0 ] cm/sec EDV 2D 93.4 [ 46.0 - 106.0 ] ml MV A Peak [place] 1.0 [ 100.0 - 120.0 ] cm/sec ESV 2D 34.2 [ 14.0 - 42.0 ] ml MV E/A 1.2 [ 0.8 - 1.5 ] ratio EF 2D 63.4 [ 54.0 - 74.0 ] percent MV Decel Time 155 [ 104 - 258 ] msec LA Dimen 2D 3.2 [ 2.7 - 3.8 ] cm Lat E` Genaro 0.1 [ 10.0 - 15.0 ] cm/sec Lateral E/E` 9.7 [ 1.0 - 2.0 ] ratio MV E/A 1.2 [ 0.8 - 1.5 ] ratio Findings: Left Ventricle: Normal left ventricular systolic function. Normal left ventricular cavity size. Normal left ventricular wall thickness. Ejection fraction is visually estimated at 60 %. Tissue Doppler/Mitral Doppler indices are within normal limits. Right Ventricle: Normal right ventricular size. Normal right ventricular systolic function. Left Atrium: The left atrium is normal in size. Right Atrium: The right atrium is normal in size. Mitral Valve: Normal appearance and function of the mitral valve with trace physiologic regurgitation. Aortic Valve: Normal appearance of the aortic valve. No significant aortic stenosis or insufficiency. Tricuspid Valve: Normal appearance of the tricuspid valve. Unable to obtain RVSP due to minimal presence of tricuspid regurgitation. Pulmonic Valve: Pulmonic valve not well visualized. Pericardium: Normal pericardium with no significant pericardial effusion. Aorta: Normal aortic root. IVC: Normal size and normal respiratory collapse consistent with normal right atrial pressure. Conclusions: Normal left ventricular systolic function. Normal left ventricular cavity size. Normal left ventricular wall thickness. Ejection fraction is visually estimated at 60 %. Tissue Doppler/Mitral Doppler indices are within normal limits. Normal appearance and function of the mitral valve with trace physiologic regurgitation. Normal appearance of the tricuspid valve. Unable to obtain RVSP due to minimal presence of tricuspid regurgitation. Electronically Signed By: Gary Ovalles 2019-02-10 18:39:29 PDT
[2019-02-11] MEDS: INDOMETHACIN 25 MG PO SCH ×4 (01:21→18:13)
[2019-02-11] MEDS: LACTATED RINGER'S 1,000 ML IV SCH ×3 (04:34→21:30)
[2019-02-11] MEDS: LABETALOL 100 MG TAB PO SCH ×2 (08:51→21:36)
[2019-02-11] MEDS: PRENATAL VITAMIN PO SCH (08:51)
[2019-02-11] MEDS ORDERED: NIFEdipine 10 MG CAP PO ONE (16:00)
--- NOTE | 2019-02-11 19:35 | QN ---
Documentation Comment No complaint Afebrile VSS Strip Appropriate for GA Continue with present care. PAO HYATT MD Feb 11, 2019 19:35
[2019-02-11] MEDS: NIFEdipine 10 MG CAP PO SCH (20:12)
[2019-02-11] MEDS: AL HYDROX/MG HYDROX/SIMETH 30 ML CUP PO PRN (20:12)
[2019-02-12] MEDS: INDOMETHACIN 25 MG PO SCH ×3 (00:02→12:09)
[2019-02-12] MEDS: NIFEdipine 10 MG CAP PO SCH ×4 (01:10→17:38)
[2019-02-12] MEDS: LACTATED RINGER'S 1,000 ML IV SCH ×2 (06:01→17:38)
[2019-02-12] MEDS: PRENATAL VITAMIN PO SCH (08:40)
[2019-02-12] MEDS: LABETALOL 100 MG TAB PO SCH ×2 (08:41→21:07)
--- NOTE | 2019-02-12 12:59 | QN ---
Documentation Comment No complaint Afebrile VSS Strip Reactive Continue present care. PAO HYATT MD Feb 12, 2019 12:59
[2019-02-13] MEDS: NIFEdipine 10 MG CAP PO SCH ×5 (00:15→23:55)
[2019-02-13] MEDS: LACTATED RINGER'S 1,000 ML IV SCH ×2 (02:31→05:30)
[2019-02-13] MEDS: LABETALOL 100 MG TAB PO SCH ×2 (09:25→21:33)
[2019-02-13] MEDS: PRENATAL VITAMIN PO SCH (09:25)
--- NOTE | 2019-02-13 16:56 | QN ---
Documentation Comment No complaint Afebrile VSS Strip Appropriate for GA Continue with present care PAO HYATT MD Feb 13, 2019 16:56
[2019-02-13] MEDS: AL HYDROX/MG HYDROX/SIMETH 30 ML CUP PO PRN (20:16)
[2019-02-14] MEDS: AL HYDROX/MG HYDROX/SIMETH 30 ML CUP PO PRN (00:52)
[2019-02-14] MEDS: NIFEdipine 10 MG CAP PO SCH ×4 (05:58→23:33)
[2019-02-14] MEDS: PRENATAL VITAMIN PO SCH (10:17)
[2019-02-14] MEDS: LABETALOL 100 MG TAB PO SCH ×2 (10:18→21:25)
[2019-02-14] MEDS: FAMOTIDINE 20 MG TAB PO SCH (11:08)
--- NOTE | 2019-02-14 15:58 | QN ---
Documentation Comment No complaint Afebrile VSS Strip Reactive Stable Continue present care Repeat labs in AM. PAO HYATT MD Feb 14, 2019 15:58
[2019-02-15] MEDS: NIFEdipine 10 MG CAP PO SCH ×3 (05:18→17:52)
[2019-02-15] MEDS: PRENATAL VITAMIN PO SCH (09:39)
[2019-02-15] MEDS: FAMOTIDINE 20 MG TAB PO SCH (09:39)
[2019-02-15] MEDS: LABETALOL 100 MG TAB PO SCH (09:39)
--- NOTE | 2019-02-15 19:02 | QN ---
Documentation Comment No complaint Afebrile VSS Strip Reactive Labs WNL Case discussed with Dr Brown ([facility]) who recommends to d/c patient home and follow up as outpatient PAO HYATT MD Feb 15, 2019 19:02
--- NOTE | 2019-02-15 19:03 | DS ---
Date/Time of Note Date/Time of Note DATE: 02/15/19 TIME: 19:02 Obstetrical Discharge Record Final Diagnosis Final Diagnosis: not delivered Other Final Diagnosis Threatened labor Complications Tocolytics: Magnesium Sulfate Condition on Discharge Physical Assessment Voiding: Yes Bowel Movement: Yes Calf Tenderness: No Patient Condition: Stable PAO HYATT MD Feb 15, 2019 19:03
== END 2019-02-15 19:55 | disposition home or self-care (01) | DRG 832 ==
LOC: OBT 10:30 → L-D 10:35 → OBT 11:10 → L-D 13:07 → PP1 02-10 23:02
PROVIDERS: ADMIT Obstetrics & Gynecology; ATTEND Obstetrics & Gynecology
DX: O47.02 False labor before 37 completed weeks of gestation, second trimester (principal); O10.912 Unspecified pre-existing hypertension complicating pregnancy, second trimester; Z3A.25 25 weeks gestation of pregnancy
CPT/HCPCS: 76815; 76817; 80053; 81001; 82575; 83735; 84156; 84560; 85025; 85384; 85610; 85730; 86592; 86850; 86900; 86901; 93005; 93306; G0463; J0702; J3475; J7120

== ENCOUNTER 2019-02-18 11:21 | Inpatient (IN) | payer MEDICAID ==
[2019-02-18] VITALS (7 sets, daily range): BP systolic 140–155; BP diastolic 68–86; PULSE 85–94; RESP 17–20
[2019-02-18] MEDS ORDERED: LACTATED RINGER'S 1,000 ML IV SCH (11:57)
[2019-02-18] MEDS ORDERED: MISOPROSTOL 200 MCG TAB PR PRN ×2 (12:00→17:00)
[2019-02-18] MEDS ORDERED: METHYLERGONOVINE 0.2 MG INJ IM PRN (12:00)
[2019-02-18] MEDS ORDERED: IBUPROFEN 600 MG TAB PO PRN (12:00)
[2019-02-18] MEDS ORDERED: CA GLUCONATE (GM) 10% 10ML INJ IV PRN (12:00)
[2019-02-18] MEDS ORDERED: BUTORPHANOL 2 MG INJ IV PRN (12:00)
[2019-02-18] MEDS ORDERED: CARBOPROST 250 MCG INJ IM PRN ×2 (12:00→17:00)
[2019-02-18] MEDS ORDERED: OXYTOCIN 30 UNITS/LR 500 ML IV SCH ×3 (12:00→16:43)
[2019-02-18] MEDS ORDERED: LABETALOL HCL 20MG INJ IV ONE (12:00)
[2019-02-18] MEDS ORDERED: MAGNESIUM SULFATE 4 GM/100 ML 100 ML IV SCH (12:00)
[2019-02-18] MEDS ORDERED: LABETALOL HCL 20MG INJ IV PRN ×2 (12:00)
[2019-02-18] MEDS ORDERED: OXYTOCIN 30 UNITS/LR 500 ML IV PRN ×2 (12:00→17:00)
[2019-02-18] MEDS ORDERED: LIDOCAINE 1% (MPF) 30 ML INJ INJ PRN (12:00)
[2019-02-18] MEDS ORDERED: NACL 0.9% 3 ML SYG IV SCH (12:00)
[2019-02-18] MEDS ORDERED: hydrALAzine 20 MG INJ IV PRN (12:00)
[2019-02-18] MEDS ORDERED: AMPICILLIN 2 GM/NS (PMX) 100 ML ONE (12:04)
[2019-02-18] MEDS ORDERED: LABETALOL HCL 20MG INJ ONE (12:05)
[2019-02-18] MEDS ORDERED: MAGNESIUM SULFATE 4 GM/100 ML 100 ML ONE (12:06)
[2019-02-18] MEDS ORDERED: OXYTOCIN 30 UNITS/LR 500 ML BAG IV ONE (12:18)
[2019-02-18] MEDS ORDERED: PHENYLephrine (100 MCG/ML) 10ML SYG ONE (12:18)
[2019-02-18] MEDS ORDERED: FENTAnyl 50 MCG/ML VIAL ONE (12:18)
[2019-02-18] MEDS ORDERED: AMPICILLIN 2 GM/NS (PMX) 100 ML IV ONE (12:30)
[2019-02-18] MEDS ORDERED: CEFAZOLIN 1 GM INJ ONE (12:50)
[2019-02-18] MEDS ORDERED: SUCCINYLCHOLINE CHLORIDE 100 MG/5 ML SYG IV ONE (12:50)
[2019-02-18] MEDS ORDERED: PROPOFOL 20 ML ONE (12:50)
[2019-02-18] MEDS ORDERED: ROCURONIUM 50 MG INJ ONE (12:50)
[2019-02-18] MEDS ORDERED: SUGAMMADEX SODIUM 200 MG/2 ML VIAL IV ONE (12:50)
[2019-02-18] MEDS ORDERED: MEPERIDINE 25 MG INJ IV PRN (13:30)
[2019-02-18] MEDS ORDERED: KETOROLAC 30 MG INJ IV PRN (13:30)
[2019-02-18] MEDS ORDERED: FENTAnyl 50 MCG/ML VIAL IV PRN ×3 (13:30)
[2019-02-18] MEDS ORDERED: DIPHENHYDRAMINE 50 MG INJ IV PRN ×2 (13:30)
[2019-02-18] MEDS ORDERED: ONDANSETRON 4 MG INJ IV PRN ×2 (13:30)
[2019-02-18] MEDS ORDERED: ALBUTEROL 0.083% (NEB) 2.5 MG/3 ML AMP HHN PRN (13:30)
[2019-02-18] MEDS ORDERED: NALOXONE (0.4 MG/ML) INJ IV PRN (13:30)
[2019-02-18] MEDS ORDERED: METOCLOPRAMIDE 10 MG INJ IV PRN (13:30)
[2019-02-18] MEDS ORDERED: HYDROmorphONE 1 MG/5 ML IV SYRINGE IV PRN ×3 (13:30)
[2019-02-18] MEDS ORDERED: ZOLPIDEM 5 MG TAB PO PRN (13:30)
[2019-02-18] MEDS ORDERED: HYDROmorphONE 0.5 MG/0.5 ML SYG IV PRN (13:30)
--- NOTE | 2019-02-18 13:33 | OPPN ---
Date/Time of Note Date/Time of Note DATE: 02/18/19 TIME: 13:30 Operative Report Planned Procedure Procedure date Feb 18, 2019 Procedure(s) Primary Performed by Pao Hyatt MD Gang Tailer: ONIEL FLETCHER MD 2nd Gang Tailer none Anesthesiologist: CONNIE LUCIO Pre-procedure diagnosis 26 weeks and 4 days with bradycardia [id number] Anesthesia Type: [id number] general Post-Procedure Post-procedure diagnosis Same Findings Live Baby [], Apgars [] and [], weight [], position [], [] presentation []cord. Estimated Blood Loss: other (600 ml) Specimen(s) Placenta Grafts/Implant(s) none Complication(s) none PAO HYATT MD Feb 18, 2019 13:32
[2019-02-18] MEDS: HYDROmorphONE 0.5 MG/0.5 ML SYG IV PRN ×2 (13:37→15:12)
[2019-02-18] MEDS: MAGNESIUM SULFATE 20 GM/500 ML 500 ML IV SCH ×2 (14:28→22:00)
--- NOTE | 2019-02-18 14:29 | HP ---
Date/Time of Note Date/Time of Note DATE: 02/18/19 TIME: 14:14 OB - History Hx of Present Free Text/Dictation February 18, 2019 : 4 Para: 2 Other Concerns: 43 years old , with IUP at 26 weeks and 4 days with care with Dr. Freeman presented with complaint of uterine contractions and was noted to be in pereterm labor. Patient was fully dilated with bulging bag of water had. Contractions every 2 to 3 minutes. Exam showed complete/complete bulging bag of water palpable at +2 station. Cannot assess presentation of the fetus. Bedside ultrasound showed vertex presentation. Carefully when the patient was not aniket using FSE amniotic fluid was drained gently along with attempt to push the vertex toward the pelvis in order to establish and maintain presentation. Amniotic fluid is slowly released. presentation reassessed vertex. large amount of amniotic fluid drained that consistent with polyhydramnios. Shortly after amniotic fluid drained vaginal bleeding noted consistent with likely abruption. bradycardia noted. Due to bradycardia patient was cannulated for emergency section. heart tone and presentation prior to taking the patient to the OR reassessed again. heart tone was in the range of 30s to 40s and presentation still vertex. Patient was pushed back to the OR. Immediately anesthesia, or and nursing staff and NICU team was notified. Called for crack section. On the way to the OR again discussed with the patient and her family about the poor outcome due to history of multiple malformation as well as current abruption with bradycardia. Risk for demise for demise discussed with the patient as well. Patient still desires to proceed with section. Dr. Rangel primary OB attending aware and in his way. Called for correct section./Betadine was done and anesthesia was called for general anesthesia. Oxygen was given during this period of time. Please see the operative report Past Family/Social History * Past Medical, Surgical, Family and Obstetric Histories reviewed from chart. OB Admission Exam Physical Exam HEENT: WNL Abdomen: WNL Extremities: Normal Cervical Dilatation: 10cm Effacement: 100% Station: +2 Membranes: Intact Heart Rate: 120's Contractions on Admission: < 5 Minutes Apart Intensity: Firm Last 72 hours Lab Results CBC & BMP 02/18/19 11:50 Liver Function Test 02/18/19 11:50 Alanine Aminotransferase (ALT/SGPT) 17 Albumin 3.5 Alkaline Phosphatase 90 Aspartate Amino Transf (AST/SGOT) 24 Direct Bilirubin 0.00 Total Protein 6.6 OB Assessment/Plan Reason for admission: active labor Other Assessment: Advanced cervical dilatation with delivery at 26 weeks History of labor in the past. 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 Patient had been counseled repeatedly apparently by perinatologist regarding poor and outcome due to abnormalities she desires to continue with Polyhydramnios, in active labor, advanced cervical dilatation abruption noted after, draining of amniotic fluid. Bedside ultrasound noted bradycardia in the range of 30-40 immediately called for section. Due to bradycardia. On the way to the OR patient was counseled and discussed again regarding risk of poor outcome including / demise. She desires to proceed with section. Presentation prior to taken to the OR still vertex. Call for emergency section. Primary attending Dr. Vasquez is on his way. OR anesthesia and NICU was notified and were prepared./Betadine was done. After general anesthesia obtained by anesthesiologist a Pfannenstiel skin incision was made and was carried down to the underlying layer fascia using scalpel. Then the rectus muscle in the midline was and intra-abdominal cavity entered bluntly. The lower uterine segment identified and low transverse incision was made. Noted baby's presentation is transverse lie with back down. Difficulty external cephalic version or internal podalic version noted due to clamping of the uterus around the baby's extremities due to urine hypertonicity secondary to abruption. Eventually could be able to grasp the baby's leg and both legs were brought up to the incision and with gentle traction the legs and in the torso and subsequently the rest of the body including head was delivered with Mauriceau maneuver. Cord was clamped and cut. Baby transferred to the warmer. NICU specialist and RT and NICU team were present at the time of delivery and started resuscitation. Placenta evaluated with evidence of abruption. Placenta was sent to pathology. At this time Dr. Vasquez presented and continued the rest of the procedure and I assisted him. resuscitation was in progress the whole time in the OR Please see operative note by Dr. Freeman. ONIEL FLETCHER MD Feb 18, 2019 14:25
[2019-02-18] MEDS ORDERED: AMPICILLIN 1 GM/NS (PMX) 50 ML IV SCH (16:30)
--- NOTE | 2019-02-18 16:34 | OPR ---
DATE OF OPERATION: 02/18/2019 PREOPERATIVE DIAGNOSES: 1. at 26 weeks and 4 days. 2. Chronic hypertension. 3. In active labor. 4. bradycardia. POSTOPERATIVE DIAGNOSES: 1. at 26 weeks and 4 days. 2. Chronic hypertension. 3. In active labor. 4. bradycardia. OPERATION: Primary low transverse section. SURGEON: Pao Freeman MD TELE TECH: Yakelin Chong MD ANESTHESIA: General. ANESTHESIOLOGIST: Ashish Shields MD INDICATION FOR SURGERY: This is a 43-year-old female, 4, para 2-0-1-2 with history of chronic hypertension with amniocentesis performed earlier in confirming Down syndrome who had been admitted from 02/08/2019 through 02/15/2019 for elevated blood pressure. During that admission, the patient has received intravenous magnesium sulfate and intramuscular betamethasone. The patient presented on day of admission in active labor. At the time of presentation, she was fully dilated with bulging membranes. During monitoring, ultrasound had revealed bradycardia. The patient had been counseled and desired to go on for delivery by primary section. DESCRIPTION OF PROCEDURE: The patient was taken to the operating room by Dr. Chong, laborist, who was present in the hospital. The patient was given general anesthesia and underwent an emergency section. section was started by Dr. Chong. The patient had Pfannenstiel incision. The incision was carried down to the fascia. The fascia was incised and extended bilaterally. The muscle was dissected down in the midline down to peritoneum. The peritoneum was incised and extended up and down. Using a scalpel, incision was made in the lower segment of uterus which was extended bilaterally. Baby was noted to be in transverse lie and baby was delivered from footling breech after internal version. Baby was handed off to the equipment mechanic in attendance. At this time, I arrived in the operating room. Placenta was delivered and sent to pathology. The uterus was closed with #1 Monocryl continuous locked. After assuring hemostasis, both ovaries and tubes were inspected and all looked normal. Peritoneal cavity was irrigated with warm saline. Peritoneum was closed with 2-0 Vicryl continuous. The fascia was closed with #1 Monocryl continuous. Subcutaneous tissue was reapproximated with 2-0 plain. Skin was closed with 4-0 Monocryl subcuticular. Due to emergency section, an abdominal x-ray was done while the patient was in the operating room and confirmed that there were no retained foreign bodies. The patient tolerated the procedure well. The patient was awakened from anesthesia and transferred to recovery room in stable condition. Estimated blood loss was 600 mL. All counts were correct at the end of the operation. Dictated By: PAO ANDERSON/WEN Conf#: [id number] DID#: [id number]
[2019-02-18] MEDS: LACTATED RINGER'S 1,000 ML IV SCH ×2 (16:43→18:47)
[2019-02-18] MEDS ORDERED: LANOLIN HPA 1 PKT TOP PRN (17:00)
[2019-02-18] MEDS ORDERED: OXYCODONE/ACETAMINOPHEN (5/325) TAB PO PRN (17:00)
--- NOTE | 2019-02-18 19:09 | PREAC ---
Date/Time of Note Date/Time of Note DATE: 02/18/19 TIME: 19:08 Anesthesia Eval and Record Evaluation Time Pre-Procedure Interview DATE: 02/18/19 TIME: 19:08 pre-op done after case start because it was an emergency Age 43 Sex female NPO: 8 hrs Preoperative diagnosis baby heart rate down Planned procedure emergency c/s Past Medical History Past Medical History: None Surgery & Anesthesia Issues No known issue Meds Anticoagulation: No Beta Cristel within 24 hr: No Reason Beta Cristel not given: Pt. not on B-Cristel Discontinued Scripts Acetaminophen* (Tylophen*) 500 Mg Capsule, 1 CAP PO Q6H PRN for PAIN AND OR ELEVATED TEMP, #30 CAP Prov:KAYA BUSBY PA-C 08/12/17 Current Medications Magnesium Sulfate 500 ml @ 50 mls/hr Q10H IV Last administered on 02/18/19at 14:28; Admin Dose 50 MLS/HR; Start 02/18/19 at 12:00 Calcium Gluconate (Ca Gluc) 1 gm ONCE PRN IV FOR MAGNESIUM TOXICITY; Start 02/18/19 at 12:00 Naloxone HCl (Narcan) 0.1 mg Q2M PRN IV .RESP RATE; Start 02/18/19 at 13:30; Stop 02/19/19 at 13:29 Ketorolac Tromethamine (Toradol) 30 mg Q6H PRN IV PAIN AFTER CSECTION; Start 02/18/19 at 13:30; Stop 02/19/19 at 13:29 Hydromorphone HCl (Dilaudid) 0.2 mg Q3H PRN IV .PAIN 1-5; Start 02/18/19 at 13:30; Stop 02/19/19 at 13:29 Hydromorphone HCl (Dilaudid) 0.4 mg Q3H PRN IV .PAIN 6-10 Last administered on 02/18/19at 15:12; Admin Dose 0.4 MG; Start 02/18/19 at 13:30; Stop 02/19/19 at 13:29 Diphenhydramine HCl (Benadryl) 25 mg Q6H PRN IV .ITCHING; Start 02/18/19 at 13:30; Stop 02/19/19 at 13:29 Ondansetron HCl (Zofran Inj) 4 mg Q6H PRN IV .NAUSEA/VOMITING; Start 02/18/19 at 13:30; Stop 02/19/19 at 13:29 Zolpidem Tartrate (Ambien) 5 mg HS MAY REPEAT X 1 PRN PO .INSOMNIA; Start 02/18/19 at 13:30; Stop 02/19/19 at 13:29 Lactated Ringer's 1,000 ml @ 125 mls/hr Q8H IV Last administered on 02/18/19at 18:47; Admin Dose 125 MLS/HR; Start 02/18/19 at 16:43; Stop 02/18/19 at 20:42 Oxytocin/Lactated Ringer's 500 ml @ 50 mls/hr Q10H IV ; Start 02/18/19 at 16:43; Stop 02/19/19 at 02:42 Oxycodone/ Acetaminophen (Percocet (5/ 325)) 1 tab Q4H PRN PO .PAIN 4-6; Start 02/18/19 at 17:00 Oxycodone/ Acetaminophen (Percocet (5/ 325)) 2 tab Q4H PRN PO .PAIN 7-10; Start 02/18/19 at 17:00 Ibuprofen (Motrin) 800 mg Q8 PO ; Start 02/18/19 at 22:00 Simethicone (Mylicon) 160 mg Q8H PRN PO .GAS; Start 02/18/19 at 17:00 Senna/Docusate Sodium (Senokot-S) 1 tab BID PO ; Start 02/18/19 at 21:00 Lanolin (Lanolin Hpa) 1 applic BEDSIDE MEDICATION PRN TOP .NIPPLES; Start 02/18/19 at 17:00 Diphtheria/ Tetanus/Acell Pertussis (Adacel) 0.5 ml ONCE ONCE IM* ; Start 02/21/19 at 09:00; Stop 02/21/19 at 09:01 Oxytocin/Lactated Ringer's 500 ml @ 0 mls/hr ONCE PRN IV .VAGINAL BLEEDING; Start 02/18/19 at 17:00 Carboprost Tromethamine (Hemabate) 250 mcg ONCE PRN IM .VAGINAL BLEEDING; Start 02/18/19 at 17:00 Misoprostol (Cytotec) 1,000 mcg ONCE PRN NC .VAGINAL BLEEDING; Start 02/18/19 at 17:00 Meds reviewed: Yes Allergies Coded Allergies: No Known Allergy (Verified , 08/12/17) Allergies Reviewed: Yes Labs/Studies Labs Reviewed: Reviewed by anesthesiologist Result Diagram: 02/18/19 1150 02/18/19 1150 Laboratory Tests 02/18/19 11:50 Blood Bank Test 02/18/19 11:15 Antibody Screen NEGATIVE Blood Type O POSITIVE Rh Immune Globulin Candidate NO test: Positive Pre-procedure Exam Last vitals Vital Signs Date Temp Pulse Resp B/P (MAP) Pulse Ox O2 O2 Flow FiO2 Time Delivery Rate 02/18/19 86 18 146/86 Room Air 18:30 (106) 02/18/19 99.1 17:00 Airway: Adequate mouth opening, Adequate thyromental dist Mallampati: Mallampati II Teeth: Normal Lung: Normal Heart: Normal ASA Physical Status ASA physical status: 2 Emergency: E Planned Anesthetic General/MAC: ETT Pre-operative Attestations Prior to commencing anesthesia and surgery, the patient was re-evaluated, there was verification of: *The patient's identity *The results of appropriate recent lab work and preoperative vital signs *The above evaluation not changing prior to induction *Anesthetic plan, risk benefits, alternative and complications discussed with patient/family; questions answered; patient/family understands, accepts and wishes to proceed. CONNIE LUCIO Feb 18, 2019 19:09
--- NOTE | 2019-02-18 19:09 | PAC ---
Date/Time of Note Date/Time of Note DATE: 02/18/19 TIME: 19:09 Post-Anesthesia Notes Post-Anesthesia Note Last documented vital signs Vital Signs Date Temp Pulse Resp B/P (MAP) Pulse Ox O2 O2 Flow FiO2 Time Delivery Rate 02/18/19 86 18 146/86 Room Air 18:30 (106) 02/18/19 99.1 17:00 Activity: WNL Respiratory function: WNL Cardiovascular function: WNL Mental status: Baseline Pain reasonably controlled: Yes Hydration appropriate: Yes Nausea/Vomiting absent: Yes CNONIE LUCIO Feb 18, 2019 19:09
[2019-02-18] MEDS: KETOROLAC 30 MG INJ IV PRN (20:34)
[2019-02-18] MEDS: SENNA/DOCUSATE NA (8.6MG/50MG) TAB PO SCH (20:49)
[2019-02-18] MEDS: IBUPROFEN 800 MG TAB PO SCH (22:00)
[2019-02-19] VITALS (18 sets, daily range): BP systolic 114–154; BP diastolic 57–75; PULSE 66–98; RESP 17–21
[2019-02-19] MEDS: MAGNESIUM SULFATE 20 GM/500 ML 500 ML IV SCH ×2 (00:38→10:31)
[2019-02-19] MEDS: KETOROLAC 30 MG INJ IV PRN ×2 (02:40→08:27)
[2019-02-19] MEDS: LACTATED RINGER'S 1,000 ML IV SCH ×2 (03:59→08:28)
[2019-02-19] MEDS: IBUPROFEN 800 MG TAB PO SCH ×3 (06:00→21:42)
[2019-02-19] MEDS: SENNA/DOCUSATE NA (8.6MG/50MG) TAB PO SCH ×2 (08:27→21:06)
[2019-02-19] MEDS ORDERED: PETROLATUM 5 GM OINT TOP ONE (11:45)
--- NOTE | 2019-02-19 13:50 | QN ---
Documentation Comment No complaint Afebrile VSS Abdomen sort POD #1 Stable D/C magnesium sulfate Advance diet Ambulate PAO HYATT MD Feb 19, 2019 13:50
[2019-02-19] MEDS: OXYCODONE/ACETAMINOPHEN (5/325) TAB PO PRN ×2 (13:51→18:05)
[2019-02-20 04:00] VITALS: BP 122/59; PULSE 75; RESP 18
[2019-02-20] MEDS: IBUPROFEN 800 MG TAB PO SCH ×3 (06:07→22:13)
[2019-02-20 08:57] VITALS: BP 134/66; PULSE 76; RESP 18
[2019-02-20] MEDS: OXYCODONE/ACETAMINOPHEN (5/325) TAB PO PRN ×2 (08:57→20:50)
[2019-02-20] MEDS: SENNA/DOCUSATE NA (8.6MG/50MG) TAB PO SCH ×2 (08:57→20:44)
[2019-02-20 12:00] VITALS: BP 136/64; PULSE 67; RESP 18
--- NOTE | 2019-02-20 12:36 | QN ---
Documentation Comment No complaint Afebrile VSS Abdomen soft POD #2 stable Continue present care. PAO HYATT MD Feb 20, 2019 12:36
[2019-02-20 16:45] VITALS: BP 140/78; PULSE 75; RESP 18
[2019-02-20 20:10] VITALS: BP 141/65; PULSE 83; RESP 18
[2019-02-21] VITALS: BP 134/63; PULSE 72; RESP 18
[2019-02-21 04:10] VITALS: BP 131/76; PULSE 72; RESP 18
[2019-02-21] MEDS: IBUPROFEN 800 MG TAB PO SCH (05:57)
[2019-02-21 08:00] VITALS: BP 134/67; PULSE 68; RESP 18
[2019-02-21] MEDS: SENNA/DOCUSATE NA (8.6MG/50MG) TAB PO SCH (08:53)
[2019-02-21] MEDS ORDERED: DIPHTH/TET/ACEL PERTUSS (ADULT) 0.5 ML VIAL IM* ONE (09:00)
[2019-02-21 12:01] VITALS: BP 139/70; PULSE 67; RESP 18
--- NOTE | 2019-02-21 12:15 | DS ---
Date/Time of Note Date/Time of Note DATE: 02/21/19 TIME: 12:14 Obstetrical Discharge Record Final Diagnosis Final Diagnosis: delivered Section Section: Primary Primary Indication bradycardia Condition on Discharge Physical Assessment Voiding: Yes Bowel Movement: Yes Breast: Soft, non-tender, Filling Fundus: Firm Abdomen and Incision: Incision intact Calf Tenderness: No Patient Condition: Stable PAO HYATT MD Feb 21, 2019 12:15
--- NOTE | 2019-02-22 13:29 | DELSUM ---
Delivery Summary A-C Datetime Report Generated by CPN: 02/22/2019 13:29 DELIVERY PERSONNEL [employer] Truck Driver: Omer Eusebia MATERNAL INFORMATION Delivery Anesthesia: Epidural Medications in Delivery: see anesthesia record Delivery QBL (ml): 500 Placenta Cultured: Yes Maternal Complications: Other Other Maternal Complications: elevated BPs, pre-term delivery. 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 Babies in Womb: 1 Attempted: No Labor Anesthesia: None LABOR INFORMATION Reason for Induction: Not Applicable Onset of Labor: 02/17/2019 23:00 Complete Dilatation: 02/18/2019 11:39 Oxytocin: N/A Group B Beta Strep: Not Done Antibiotics # of Doses: 0 Steroids Given: Full Course Reason Steroids Not Administered: Indication MEMBRANES Membranes Rupture Method: Artificial Rupture of Membranes: 02/18/2019 12:01 Length of Rupture (hr): 0.28 Amniotic Fluid Color: Clear Amniotic Fluid Amount: Copious Amniotic Fluid Odor: None STAGES OF LABOR Stage 1 hr: 12 Stage 1 min: 39 Stage 2 hr: 0 Stage 2 min: 39 Stage 3 hr: 0 Stage 3 min: 1 Total Time in Labor hr: 13 Total Time in Labor min: 19 CSECTION DELIVERY Primary Indication: Trans/Complex Presentatio Secondary Indication: N/A CSection Urgency: Emergency CSection Incidence: Primary Labor: Labor Elective: Nonelective CSection Incision: Lower Uterine Transverse BABY A INFORMATION Delivery Date/Time: 02/18/2019 12:18 Method of Delivery: Born in Route : No : N/A Forceps: N/A Vacuum Extraction: N/A Shoulder Dystocia : N/A SHOULDER DYSTOCIA BABY A Infant Delivery Date/Time: 02/18/2019 12:18 PRESENTATION/POSITION BABY A Presentation: Compound Cephalic Presentation: N/A Breech Presentation: N/A PLACENTA INFORMATION BABY A Placenta Delivery Time : 02/18/2019 12:19 Placenta Method of Delivery: Spontaneous Placenta Status: Delivered SCORES BABY A Heart Rate 1 min: Absent Resp Effort 1 min: Absent Reflex Irritability 1 min: No Response Muscle Tone 1 min: Flaccid Color 1 min: Blue/Pale Resuscitation Effort 1 min: Oxygen; Chest Compression SCORE 1 MIN: 0 Heart Rate 5 min: Absent Resp Effort 5 min: Absent Reflex Irritability 5 min: No Response Muscle Tone 5 min: Flaccid Color 5 min: Blue/Pale Resuscitation Effort 5 min: Oxygen; Chest Compression; Chemical Resuscitation SCORE 5 MIN: 0 Heart Rate 10 min: Absent Resp Effort 10 min: Absent Reflex Irritability 10 min: No Response Muscle Tone 10 min: Flaccid Color 10 min: Blue/Pale Resuscitation Effort 10 min: Oxygen; Chest Compression; Chemical Resuscitation SCORE 10 MIN: 0 INFORMATION BABY A Gestational Age at Delivery: 26.4 Gestational Status: - <34 Weeks Infant Outcome : Stillborn, with no signs of life Infant Condition : Critical Infant Sex: Male WEIGHT/LENGTH BABY A Infant Birthweight (gm): 725 Weight (lb): 1 Infant Weight (oz): 10 Length (in): 12.25 Length (cm): 31.12 CORD INFORMATION BABY A No. Cord Vessels: 3 Nuchal Cord : N/A Cord Blood Taken: Yes Infant Suction: Mouth; Nose ASSESSMENT BABY A Infant Complications- Other: pre-term Physical Findings- Other: see NICU NOTES Business Developer/ALS Called : Yes Care By: Dr. Hernandez Transferred To: Remains with Mother
== END 2019-02-21 12:55 | disposition home or self-care (01) | DRG 786 ==
LOC: OBT 11:21 → L-D 11:23 → OBT 11:43 → L-D 11:44 → PP1 16:22
PROVIDERS: ADMIT Obstetrics & Gynecology; ATTEND Obstetrics & Gynecology
PROC: 4A1HXCZ Monitoring of Products of Conception, Cardiac Rate, External Approach (ICD-10-PCS; 2019-02-18)
PROC: 10D00Z1 Extraction of Products of Conception, Low, Open Approach (ICD-10-PCS; principal; 2019-02-18 12:00)
PROC: 3E0234Z Introduction of Serum, Toxoid and Vaccine into Muscle, Percutaneous Approach (ICD-10-PCS; 2019-02-21)
DX: O60.12X0 Preterm labor second trimester with preterm delivery second trimester, not applicable or unspecified (principal); O45.92 Premature separation of placenta, unspecified, second trimester; O36.4XX0 Maternal care for intrauterine death, not applicable or unspecified; O10.92 Unspecified pre-existing hypertension complicating childbirth; O40.2XX0 Polyhydramnios, second trimester, not applicable or unspecified; O76 Abnormality in fetal heart rate and rhythm complicating labor and delivery; O35.1XX0 Maternal care for (suspected) chromosomal abnormality in fetus, not applicable or unspecified; O32.2XX0 Maternal care for transverse and oblique lie, not applicable or unspecified; O32.8XX0 Maternal care for other malpresentation of fetus, not applicable or unspecified; Z3A.26 26 weeks gestation of pregnancy; Z37.1 Single stillbirth; Z23 Encounter for immunization
CPT/HCPCS: 74018; 76815; 80069; 80076; 83615; 83735; 84560; 85025; 85384; 85610; 85730; 86592; 86850; 86900; 86901; 87340; 88307; 90715; 99464; G0463; J0290; J0690; J1170; J1885; J2370; J2590; J3010; J3475; J7120